=== PATIENT | male | born 1995 | race Caucasian/White ===

== ENCOUNTER 2017-06-16 16:30 | Emergency (ER) | payer OTHER ==
[~2017-06-16] VITALS: Ht 167.6 cm; Wt 89.3 kg
[2017-06-16] MEDS ORDERED: ALBUTEROL SULFATE 2.5 MG/3 ML NPPB ONE (17:30)
[2017-06-16] MEDS ORDERED: ACETAMINOPHEN 500 MG TABLET PO ONE (17:30)
[2017-06-16] MEDS ORDERED: IBUPROFEN 200 MG TABLET PO ONE (17:30)
[2017-06-16] MEDS ORDERED: SODIUM CHLORIDE 0.9% 1,000ML IVBOLUS ONE ×2 (17:30→19:00)
[2017-06-16] MEDS ORDERED: ALBUTEROL SULFATE 2.5 MG/3 ML ONE (17:32)
[2017-06-16 17:44] LABS: HEMATOCRIT 48.2 % (39.2-51.8); HEMOGLOBIN 16.5 g/dL (13.7-18.0); WHITE BLOOD COUNT 7.4 x10^3/uL (4.5-13.2)
[2017-06-16 17:52] LABS: BLOOD UREA NITROGEN 6 mg/dL (7-18)
[2017-06-16 17:54] LABS: PATH.CAST-FLAG NOT PRESENT; SPERM-FLAG NOT PRESENT; SRC-FLAG NOT PRESENT; XTAL-FLAG NOT PRESENT; YLC-FLAG NOT PRESENT
[2017-06-16] MEDS ORDERED: KETOROLAC 30 MG/1 ML IVPush ONE (18:00)
[2017-06-16] MEDS ORDERED: KETOROLAC 30 MG/1 ML ONE (18:04)
[2017-06-16] MEDS ORDERED: IBUPROFEN 200 MG TABLET ONE (18:04)
[2017-06-16] MEDS ORDERED: ACETAMINOPHEN 500 MG TABLET ONE (18:04)
[2017-06-16 19:53] LABS: IS PT STATUS REG ER OR PRE ER? YES
[2017-06-16] MEDS ORDERED: OMNIPAQUE 350 MG/ML, 100ML BOTTLE ONE (20:52)
[2017-06-16 21:46] VITALS: BP 121/80
== END 2017-06-16 21:44 ==
LOC: ED 21:40
DX: R09.1 Pleurisy (principal); J20.8 Acute bronchitis due to other specified organisms; B96.89 Other specified bacterial agents as the cause of diseases classified elsewhere
CPT/HCPCS: 36415; 71020; 71275; 80048; 81001; 82040; 83605; 84484; 85025; 85379; 93005; 94640; 96361; 96374; 99285; J1885; J7030; Q9967; J7613